=== PATIENT | female | born 1955 | race Caucasian/White ===

== ENCOUNTER → 2018-12-13 | Outpatient (CLI) | payer BC | LOC: MC.RAD 10:15 | DX: Z12.31 Encounter for screening mammogram for malignant neoplasm of breast (principal) ==

== ENCOUNTER 2020-11-12 12:19 | Day surgery (SDC) | payer BC ==
[2020-11-12] VITALS (7 sets, daily range): BP systolic 105–136; BP diastolic 61–96; PULSE 38–65; TEMP 98.1–98.3
[~2020-11-12] VITALS: Ht 147.3 cm; Wt 62.2 kg
[2020-11-12 13:35] LABS: HEMATOCRIT 42.6 % (37.0-47.0); HEMOGLOBIN 14.6 g/dl (12.5-16.0); MEAN CELL VOLUME 85 fl (80.0-100.0); MEAN CORPUSCULAR HEMOGLOBIN 29 pg (27.0-31.0); MEAN CORPUSCULAR HGB CONC 34 g/dl (33.0-37.0); MEAN PLATELET VOLUME 10.2 fl (7.4-10.4); PLATELET COUNT 210 K/mm3 (130-400); RED BLOOD COUNT 5.03 M/mm3 (4.10-5.30); REDCELL DISTRIBUTION WIDTH-CV 13.6 % (11.5-14.5)
[2020-11-12] MEDS ORDERED: ONE-A-DAY ESSE1 EACH PO (13:35)
[2020-11-12] MEDS ORDERED: THE MEDICINE S200 M2 PO (13:35)
[2020-11-12] MEDS ORDERED: OMEGA-31 SGL PO (13:36)
[2020-11-12] MEDS ORDERED: VITAMINC1000TA PO (13:36)
[2020-11-12] MEDS ORDERED: ZYRTEC 10MG10 MG PO (13:37)
[2020-11-12] MEDS ORDERED: ASHWAGANDHA PO (13:37)
[2020-11-12] MEDS ORDERED: MASON NATURAL2000 IU PO (13:38)
[2020-11-12] MEDS ORDERED: CHROMIUM PICOLI1 TA8 PO (13:39)
[2020-11-12] MEDS ORDERED: NATURE'S BLEND500 M1 PO (13:39)
[2020-11-12] MEDS ORDERED: ASPIRIN E.C. 8181 MG PO (13:39)
[2020-11-12 13:45] LABS: INR 1.1 (0.8-3.0); PROTHROMBIN TIME 11.8 SECONDS (9.7-12.8)
[2020-11-12 13:46] LABS: CALCIUM 9.7 mg/dL (8.4-10.2); CREATININE, serum 0.92 (0.52-1.25); MAGNESIUM 1.9 mg/dL (1.6-2.3); POTASSIUM 3.9 mmol/L (3.4-5.0)
[2020-11-12 14:36] LABS: THYROID STIMULATING HORMONE 1.577 uIU/mL (0.350-4.940)
--- NOTE | 2020-11-12 19:45 | NUR ---
PATIENT WAS RECEIVED FROM [facility] ON A CART.PATIENT IS BREATHING ON ROOM AIR.PATIENT DENIES PAIN.ADMISSION ORIENTATION NONE.THE INCISIN SITE IS CDI,NO OTHER NEEDS ST THIS TIME.
--- NOTE | 2020-11-12 21:00 | NUR ---
PATIENT WALKED TO THE BATHROOM TOLERATED WELL.
[2020-11-13 00:15] VITALS: BP 114/82; PULSE 59
[2020-11-13 01:15] VITALS: BP 114/77; PULSE 59
[2020-11-13 03:49] VITALS: BP 103/77; PULSE 60; TEMP 97.7
[2020-11-13 06:55] LABS: BASO % 0.5 % (0.0-2.0); EOS # 0.5 (0.0-0.7); GRAN # 4.6 (1.4-6.5); GRAN % 59.8 % (42.2-75.2); HEMATOCRIT 45.3 % (37.0-47.0); HEMOGLOBIN 15.3 g/dl (12.5-16.0); LYMPH % 25.7 % (20.0-51.0); MEAN CELL VOLUME 86 fl (80.0-100.0); MEAN CORPUSCULAR HEMOGLOBIN 29 pg (27.0-31.0); MEAN CORPUSCULAR HGB CONC 34 g/dl (33.0-37.0); MEAN PLATELET VOLUME 10.2 fl (7.4-10.4); MONO # 0.6 (0.1-0.6); MONO % 7.6 % (1.7-9.3); PLATELET COUNT 194 K/mm3 (130-400); RED BLOOD COUNT 5.29 M/mm3 (4.10-5.30); REDCELL DISTRIBUTION WIDTH-CV 13.5 % (11.5-14.5)
[2020-11-13 07:12] LABS: CALCIUM 9.4 mg/dL (8.4-10.2); CREATININE, serum 0.96 (0.52-1.25); POTASSIUM 3.9 mmol/L (3.4-5.0)
[2020-11-13 07:41] VITALS: BP 133/72; PULSE 62; TEMP 98
--- NOTE | 2020-11-13 10:41 | NUR ---
SHIFT ASSESSMENT PREFORMED. SCHEDULED MEDICATIONS GIVEN. FLUDS RUNNING ORDERED. PACER SITE DRESSING CLEAN, DRY, AND INTACT. PATIENT RATES HER INCISION SITE PAIN A 2/10. DENIES THE NEED FOR ANY FURTHER INTERVENTIONS AT THIS TIME. PATIENT DENIES ANY FURTHER PAIN, DISCOMFORT, SOA, OR NEEDS AT THIS TIME. VSS. PATIENT A&O. CALL LIGHT IN REACH.
[2020-11-13 11:36] VITALS: BP 137/70; PULSE 60; TEMP 97.9
[2020-11-13] MEDS ORDERED: CEPHALEXIN500 M1 PO (12:27)
--- NOTE | 2020-11-13 13:29 | NUR ---
Usability Strategist offered prayer and support with patient while family was in room.
--- NOTE | 2020-11-13 14:52 | NUR ---
Plans to return home wiht mother as care supports. Katie. Patient report that she uses Darin Farah as PCP. Patient shares that she has never had to use her medication scripts but will prefer [facility]. Patient shares that she has had a pacemaker placed. Patient denies not she has no pain at this time. Patient reports that she is not needing any Home health or DME supports. CLient shares that she is independent otherwise. LCient details care supports. Educated on services from Case management. NF.
--- NOTE | 2020-11-13 15:09 | NUR ---
PATIENT DEEMED FIT FOR DISCHARGE. IV DC'D, CATHETER INTACT, NO SIGNS OF PHLEBITIS. DISCHARGE EDUCATION/INSTRUCTIONS GIVEN. PATIENT DENIES ANY QUESTIONS OR CONCERNS AT THIS TIME. VSS. PATIENT A&O. PATIENT DENIES ANY FURTHER PAIN, DISCOMFORT, OR NEEDS AT THIS TIME. PATIENT AMBULATED FROM BUILDING ESCORTED BY VIA [facility]. MOTHER TO TRANSPORT HOME.
== END 2020-11-13 15:20 | disposition home or self-care (01) ==
LOC: COL.CAR 12:19 → MEDICAL 19:30 → COL.CAR 11-13 15:20
PROVIDERS: Internal Medicine Cardiovascular Disease
DX: I49.5 Sick sinus syndrome (principal); R42 Dizziness and giddiness; I65.23 Occlusion and stenosis of bilateral carotid arteries; I42.2 Other hypertrophic cardiomyopathy; I51.7 Cardiomegaly; E11.9 Type 2 diabetes mellitus without complications; Z79.82 Long term (current) use of aspirin; Z79.899 Other long term (current) drug therapy; Z82.3 Family history of stroke
CPT/HCPCS: OP; C1769; C1785; C1894; C1898; J0690; J2250; J3010; Q9967

== ENCOUNTER → 2022-05-01 | Outpatient (CLI) | payer BC ==
[~2022-05-01] MED LIST: ASHWAGANDHA PO; ASPIRIN E.C. 8181 MG PO; CEPHALEXIN500 M1 PO; CHROMIUM PICOLI1 TA8 PO; MASON NATURAL2000 IU PO; NATURE'S BLEND500 M1 PO; OMEGA-31 SGL PO; ONE-A-DAY ESSE1 EACH PO; THE MEDICINE S200 M2 PO; VITAMINC1000TA PO; ZYRTEC 10MG10 MG PO
== END ==
LOC: MC.RAD 09:50
DX: Z12.31 Encounter for screening mammogram for malignant neoplasm of breast (principal)

== ENCOUNTER → 2023-06-12 | Outpatient (CLI) | payer BC | LOC: MC.RAD 10:53 | DX: Z12.31 Encounter for screening mammogram for malignant neoplasm of breast (principal) ==